=== PATIENT | male | born 1965 | race Hispanic/Latino ===

== ENCOUNTER → 2024-10-04 | Outpatient (CLI) | payer OTHER ==
--- NOTE | 2024-10-04 16:48 | HMCIMG ---
CHEST 2VWS HISTORY: Heart disease COMPARISON: None FINDINGS: Frontal and lateral projections of the chest were obtained. There is no acute pulmonary infiltrates or failure. Poststernotomy changes are seen. The heart is not enlarged. No evidence of aortic calcification is seen. Degenerative changes are seen of the thoracolumbar spine. IMPRESSION: 1. No acute pulmonary infiltrates.
--- NOTE | 2024-10-04 16:48 | HMCIMG ---
LUMBAR SPINE 2-3VWS HISTORY: Chronic renal disease COMPARISON: None FINDINGS: 3 images of lumbar spine were obtained. There is reversal of normal lordotic curvature which may be related to muscle spasm or positioning. Superior endplate compression fracture is seen involving the L2 with 50% loss of height.. Degenerative changes are seen. IMPRESSION: 1. L2 superior endplate compression fracture with 50% loss of height.
== END | disposition home or self-care (01) ==
LOC: RAH 15:14
PROVIDERS: ATTEND Internal Medicine
DX: M47.815 Spondylosis without myelopathy or radiculopathy, thoracolumbar region (principal); I51.9 Heart disease, unspecified
CPT/HCPCS: 71046; 72100